=== PATIENT | female | born 1940 | race Caucasian/White ===

== ENCOUNTER → 2021-10-13 09:07 | Outpatient (BNVA) | payer MEDICARE, MEDICAID, SELFPAY | PROVIDERS: PCP Family Medicine; Visit Provider Psychiatry & Neurology Neurology | DX: R44.1 Visual hallucinations (principal); R26.9 Unspecified abnormalities of gait and mobility | CPT/HCPCS: 99202 ==

== ENCOUNTER → 2021-11-10 14:17 | Outpatient (BNVA) | payer MEDICARE, MEDICAID, SELFPAY | PROVIDERS: PCP Family Medicine; Visit Provider Psychiatry & Neurology Neurology | DX: R44.1 Visual hallucinations (principal); R26.9 Unspecified abnormalities of gait and mobility; G25.2 Other specified forms of tremor; Z79.899 Other long term (current) drug therapy | CPT/HCPCS: 99212 ==